=== PATIENT | female | born 1950 | race Caucasian/White ===

== ENCOUNTER 2023-06-07 08:58 | Day surgery (SDC) | payer OTHER ==
[2023-06-07] MEDS: Lactated Ringers 1,000 ML IV SCH (09:17)
[2023-06-07] MEDS ORDERED: Propofol 200 MG/20 ML SDV ONE (09:57)
[2023-06-07] MEDS ORDERED: fentaNYL 100 MCG/2 ML SDV ONE (09:57)
== END 2023-06-07 12:10 | disposition home or self-care (01) ==
LOC: VM.SDS 08:58
PROVIDERS: ATTEND Surgery
DX: Z13.818 Encounter for screening for other digestive system disorders (principal); Z87.19 Personal history of other diseases of the digestive system; E11.69 Type 2 diabetes mellitus with other specified complication; E78.5 Hyperlipidemia, unspecified; E11.59 Type 2 diabetes mellitus with other circulatory complications; I15.2 Hypertension secondary to endocrine disorders; E11.29 Type 2 diabetes mellitus with other diabetic kidney complication; R80.9 Proteinuria, unspecified; K74.69 Other cirrhosis of liver; I47.10 Supraventricular tachycardia, unspecified; E66.9 Obesity, unspecified; Z68.33 Body mass index [BMI] 33.0-33.9, adult; Z79.84 Long term (current) use of oral hypoglycemic drugs; Z79.899 Other long term (current) drug therapy
CPT/HCPCS: 00731; 82947; J2704; J3010; J7120

== ENCOUNTER 2025-01-15 09:27 | Day surgery (SDC) | payer MEDICARE, OTHER ==
[~2025-01-15 09:27] MED LIST: Propofol 200 MG/20 ML SDV ONE; fentaNYL 100 MCG/2 ML SDV ONE
[2025-01-15] MEDS: Lactated Ringers 1,000 ML IV SCH (09:45)
== END 2025-01-15 12:15 | disposition home or self-care (01) ==
LOC: VM.SDS 09:27
PROVIDERS: ATTEND Surgery
DX: K75.81 Nonalcoholic steatohepatitis (NASH) (principal); I10 Essential (primary) hypertension; E11.9 Type 2 diabetes mellitus without complications; E66.811 Obesity, class 1; Z79.4 Long term (current) use of insulin; Z68.30 Body mass index [BMI] 30.0-30.9, adult; Z79.82 Long term (current) use of aspirin; Z79.899 Other long term (current) drug therapy
CPT/HCPCS: 43235; 82947; J2704; J3010; J7120; 00731; 99100